=== PATIENT | female | born 1995 | race Caucasian/White ===

== ENCOUNTER 2016-07-12 10:23 | Emergency (ER) | payer OTHER ==
[~2016-07-12] VITALS: Ht 152.4 cm; Wt 61.4 kg
[2016-07-12 10:27] VITALS: BP 151/87; PULSE 106; RESP 18; O2SAT 96
[2016-07-12] MEDS ORDERED: PROP20TA5 PO (10:46)
[2016-07-12] MEDS ORDERED: CLON0.2T PO (10:46)
[2016-07-12] MEDS ORDERED: BUPR300T51 PO (10:46)
--- NOTE | 2016-07-12 10:50 | ED.REPORT ---
HPI-Psychiatric Illness Date of Service July 12, 2016 ED Provider: MargueriteJustin Maria Luz DO 21 y/o female with a hx of depression, heroin abuse (in recovery for 4 months) presents to the ED complaining of suicidal ideation without a plan, onset this morning. The pt reports she can't bring herself to get out of bed or shower. She has been drinking alcohol for the past 3 weeks and states she may have "mildly overdosed on Xanax two days ago" because she was in a bad mood. The pt thinks she may relapse on heroin. She takes Wellbutrin as prescribed by her psychiatrist. The pt states she was on Suboxone for 25 days and it seemed to help. The pt has a family hx of depression. Nursing Notes Stated Complaint: MENTAL HEALTH/SUCIDAL Chief Complaint: Psychiatric Complaint Nursing Notes Reviewed: Yes Allergies: Coded Allergies: No Known Allergies (Unverified , 07/12/16) Scheduled Bupropion ER (Wellbutrin XL) 300 Mg Tab.er.24h 300 MG PO DAILY Clonidine (Clonidine) 0.2 Mg Tablet 0.2 MG PO HS Propranolol HCl (Propranolol HCl) 20 Mg Tablet Unknown Dose PO TID General Time Seen by MD: 10:46 Chief Complaint Suicidal ideation Hx Obtained From: Patient Arrived By: Walk-in Onset Occurred: 21 - 23 hours ago Symptom Duration: Since onset Severity: Current: No pain currently Severity: Maximum: No pain Recent Healthcare: No recent doctor visit Similar Sx Previous: Yes Risk-Psychiatric Illness Suicide Risk Stratification Suicide Risk Factors - Adult: : Alcohol use: Previous attempt: Substance abuseNo: Prior psych admission RF Statements: Risk factors reviewed Past Medical History Past Medical History Suicidal ideation Reports: Depression Past Surgical History Breast reduction Family History Depression Smoking History Current Every Day Smoker Social History Alcohol Use: 3-5 per day Drug Use: In recovery (Heroin), THC, Xanax Ambulatory Status Independent Review of Systems Psychiatric: Reports: Depression, Suicidal ideation Complete sys rev & neg: except as marked. Physical Exam Initial Vital Signs Vital Signs (First) Date Time Temp Pulse Resp B/P Pulse Ox O2 Delivery O2 Flow Rate FiO2 07/12/16 10:27 37.2 106 18 151/87 96 Room Air Initial VS: Reviewed Head / Eyes: Atraumatic, Normocephalic Neck: Supple, Non-tender, Full range of motion Respiratory: Breath sounds normal, Clear to auscultation, No respiratory distress Cardiovascular: Regular rate & rhythm, Heart sounds normal, Intact distal pulses Abdomen / GI: Soft, Non-tender, No guarding, No rebound, No distention Extremities: Vascular intact, Neuro intact, No swelling, No tenderness Skin: Warm, Dry, No cyanosis General/Constitutional: Awake, Alert, Cooperative Neurologic: Oriented X3, Speech NL, No motor deficits, No sensory deficits Psychiatric: Not homicidal Abnormal Mood/Affect: Positive: Depressed, Flat affect Abnormal Thinking / Perception: Positive: Suicidal, no plan Interpretation & Diagnostics Lab Results Interpretation Result Diagram: 07/12/16 1110 07/12/16 1110 Test 07/12/16 11:10 White Blood Count 11.0th/mm3 (3.8-10.1) Red Blood Count 4.89mil/mm3 (3.90-5.20) Hemoglobin 15.4g/dL (12.0-15.6) Hematocrit 45.2% (35.0-46.0) Mean Corpuscular Volume 92.4fL (81-100) Mean Corpuscular Hemoglobin 31.5pg (27.0-35.0) Mean Corpuscular Hemoglobin Concent 34.1% (32.0-37.0) Red Cell Distribution Width 13.3% (12.3-15.4) Platelet Count 356bil/L (150-400) Neutrophils (%) (Auto) 62.4% (40-74) Lymphocytes (%) (Auto) 23.5% (14-46) Monocytes (%) (Auto) 11.0% (4-12) Eosinophils (%) (Auto) 2.5% (0-5) Basophils (%) (Auto) 0.4% (0-3) Sodium Level 139mEq/L (134-144) Potassium Level 4.1mEq/L (3.5-5.2) Chloride Level 99mEq/L (97-108) Carbon Dioxide Level 24mmol/L (18-29) Blood Urea Nitrogen 13mg/dL (6-20) Creatinine 0.81mg/dL (0.57-1.00) Estimat Glomerular Filtration Rate 127mL/min (>59) Glucose Level 99mg/dL (60-99) Calcium Level 10.0mg/dL (8.5-10.1) Total Bilirubin 0.5mg/dL (0.0-1.2) Aspartate Amino Transf (AST/SGOT) 22U/L (0-50) Alanine Aminotransferase (ALT/SGPT) 24U/L (0-32) Alkaline Phosphatase 91U/L (25-150) Total Protein 8.2g/dL (6.4-8.4) Albumin 4.6g/dL (3.4-5.0) Thyroid Stimulating Hormone (TSH) 0.820uIU/mL (0.450-4.500) Re-Eval/Medical Decision Med Decision/Clinical Course Overall patient contracts for safety does not seem to be at imminent risk of harm to herself or others. She is seen by social work in an outpatient care plan has been assembled. Return in follow-up precautions given. Re-Evaluation/Progress : Time of Eval: 12:50 Re-Evaluation/Progress Note: Rechecked pt. Discussed lab results and diagnosis. Informed the pt of the plan to discharge. Pt understands and agrees with plan. F/U instructions and RTER warning given. All questions addressed. Counseled Regarding: Diagnosis, Lab results, Need for follow-up, When/why to return to ED Discharge & Departure Impression: Primary Impression: Acute situational disturbance Additional Impression: Substance abuse )( Condition at Discharge: No danger to self, No danger to others Disposition: Home Discharge Condition All VS Reviewed: Yes Condition: Stable Additional Instructions: As discussed with our neonatal social worker, make a follow up appointment at [facility] on July 14 at [address]am. [address], [address], Phone: [phone] Notify your family, return to the ER, call the crisis line, or call 911 if you are feeling suicidal. Referrals: [facility] Att[facility] Portions of this note were transcribed by Wendie Wallace. I, , personally performed the history, physical exam and medical decision-making;I reviewed and confirmed the accuracy of the information in the transcribed note. Signed by Nigel Dominique. 07/12/16 1310 copies to: [facility] Justin Everett DO July 12, 2016 10:50 Wendie Wallace July 12, 2016 11:12
[2016-07-12 11:17] LABS: BASOPHILS % (AUTO) 0.4 % (0-3); EOSINOPHILS % (AUTO) 2.5 % (0-5); Mean Corpuscular Hemoglobin 31.5 pg (27.0-35.0); Mean Corpuscular Volume 92.4 fL (81-100); NEUTROPHILS % (AUTO) 62.4 % (40-74); Platelet Count 356 bil/L (150-400)
[2016-07-12 13:36] VITALS: BP 126/77; PULSE 71; RESP 18; O2SAT 98
== END 2016-07-12 13:38 | disposition home or self-care (01) ==
LOC: SED 10:23
DX: F43.0 Acute stress reaction (principal); F11.10 Opioid abuse, uncomplicated; F10.10 Alcohol abuse, uncomplicated; F17.200 Nicotine dependence, unspecified, uncomplicated; F32.9 Major depressive disorder, single episode, unspecified